=== PATIENT | female | born 1960 | race Caucasian/White ===

== ENCOUNTER → 2017-06-29 | Outpatient (REF) ==
--- NOTE | 2017-06-29 14:59 | REP ---
Left knee five views: There are no comparisons. There is chondrocalcinosis suggestive of CPPD. There is joint space narrowing of the medial compartment compatible with articular cartilage atrophy. There is no joint space narrowing of the lateral compartment patellofemoral compartment. Mineralization is normal. There is no joint effusion. Impression: Chondrocalcinosis suggestive of CPPD. Articular cartilage atrophy in the medial compartment. Signed by Martin Blue MD 06/29/2017 02:51 P
== END ==
LOC: M SMT 14:04
PROVIDERS: ATTEND Internal Medicine
DX: Z02.9 Encounter for administrative examinations, unspecified (principal)

== ENCOUNTER → 2019-02-22 | Outpatient (CLI) | payer OTHER ==
[~2019-02-22] MED LIST: CYCL10TA PO; DOXE10CA PO; FEXO180T58 PO; GABA-1171 PO; HYDR-3713 PO; HYDR-643 PO; LEVO50TA5 PO; LISI10TA4 PO; MIRA0.5T PO; MONT10TA2 PO; PARO10TA3 PO; SIMV20TA2 PO; VENTAER INH; XOLA150S SC
[2019-02-22 11:05] LABS: HEMATOCRIT 44.9 % (36.0-47.0); HEMOGLOBIN 14.9 g/dl (12.0-15.5); MEAN CORPUSCULAR HEMOGLOBIN 29.2 pg (27.0-33.0); MEAN CORPUSCULAR HGB CONC 33.2 g/dl (32.0-36.5); MEAN CORPUSCULAR VOLUME 87.9 fl (80.0-96.0); PLATELET COUNT, AUTOMATED 251 10^3/uL (150-450); RED BLOOD COUNT 5.11 10^6/uL (4.00-5.40); WHITE BLOOD COUNT 6.7 10^3/uL (4.0-10.0)
[2019-02-22 11:17] LABS: INR 0.96; PROTHROMBIN TIME 12.9 SECONDS (12.1-14.4)
[2019-02-22 11:45] LABS: ERYTHROCYTE SEDIMENTATION RATE 18 mm/hr (0-30)
[2019-02-22 11:49] LABS: ALBUMIN 3.5 GM/DL (3.2-5.2); ALT/SGPT 112 U/L (12-78); BILIRUBIN,TOTAL 1.3 MG/DL (0.2-1.0); BLOOD UREA NITROGEN 14 MG/DL (7-18); CALCIUM LEVEL 8.8 MG/DL (8.8-10.2); CARBON DIOXIDE LEVEL 24 MEQ/L (21-32); CHLORIDE LEVEL 104 MEQ/L (98-107); CREATININE FOR GFR 0.71 MG/DL (0.55-1.30); GLOMERULAR FILTRATION RATE > 60.0 (>45); GLUCOSE, FASTING 153 MG/DL (70-100); POTASSIUM SERUM 4.5 MEQ/L (3.5-5.1); SODIUM LEVEL 137 MEQ/L (136-145); TOTAL PROTEIN 7.6 GM/DL (6.4-8.2)
--- NOTE | 2019-02-23 01:47 | REP ---
Clinical: Preoperative assessment. Left knee arthroplasty . Comparison: None . Technique: PA and lateral. Findings: The mediastinum and cardiac silhouette are normal. The lung hobbs are clear and without acute consolidation, effusion, or pneumothorax. The skeletal structures are intact and normal. Impression: 1. No acute cardiopulmonary process. Electronically Signed by Darrius Echols MD 02/23/2019 01:38 A
--- NOTE | 2019-02-23 19:08 | ECGEPIP ---
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
== END ==
LOC: M LAB 09:54
PROVIDERS: ATTEND Orthopaedic Surgery
DX: Z01.810 Encounter for preprocedural cardiovascular examination (principal); M17.12 Unilateral primary osteoarthritis, left knee

== ENCOUNTER → 2019-05-03 | Outpatient (CLI) | payer OTHER ==
--- NOTE | 2019-05-02 15:21 | HPE ---
DATE OF ANTICIPATED ADMISSION: 05/03/2019 .ATTENDING PHYSICIAN: Dr. Robbin Castaneda CHIEF COMPLAINT: Left knee pain and stiffness. HISTORY: This is a pleasant, 58-year-old female patient with progressively worsening left knee pain and stiffness who has failed to improve with conservative management. She has continued pain with weightbearing activities that are affecting her activities of daily living. She has elected for and consented for left total knee arthroplasty by Dr. Castaneda for her continued symptoms. ALLERGIES: PENICILLIN, ERYTHROMYCIN which give her canker sores in her mouth. CURRENT MEDICATIONS: - omeprazole 20 mg 2 capsules by mouth daily - hydroxyzine HCl 10 mg as directed - Ventolin as directed - fexofenadine HCl 180 mg one by mouth daily - paroxetine 10 mg one by mouth daily - levothyroxine 50 mcg one by mouth daily on an empty stomach - pramipexole dihydrochloride 0.5 mg one by mouth daily - Singulair 10 mg one by mouth daily - simvastatin 20 mg one by mouth daily - lisinopril 10 mg one by mouth daily - cyclobenzaprine 10 mg one by mouth three times a day as needed - doxepin 10 mg one by mouth daily - Xolair 150 mg/mL as directed - [place] 5/325 one by mouth every 6 hours as needed PAST MEDICAL HISTORY: 1. Obstructive sleep apnea. 2. Essential hypertension. 3. Mixed hyperlipidemia. 4. Asthma. 5. Hypothyroidism. 6. Chronic idiopathic urticaria. 7. Esophageal reflux. 8. Environmental and seasonal allergies. 9. Restless leg syndrome. 10. Chronic knee pain. SURGICAL HISTORY: 1. Right total knee arthroplasty. 2. Left lower abdominal hernia repair. 3. The patient had recent cardiac catheterization this year. FAMILY HISTORY: Noncontributory. SOCIAL HISTORY: The patient does not smoke. She occasionally drinks alcohol. REVIEW OF SYSTEMS: Denies fever, chills, chest pain, shortness breath, nausea, vomiting, diarrhea. Denies abdominal pain. Denies recent upper respiratory or urinary tract infection symptoms. PHYSICAL EXAMINATION: Vital signs: Height 5, 2-1/2. Weight 286.8 pounds. Temperature 98.5. Blood pressure 140/80. Pulse 115. Respirations 14. Normocephalic, atraumatic. Neck: Supple with no lymphadenopathy or jugular venous distention (JVD). S1 and S2 auscultated with no murmurs, rubs, or gallops. Lungs: Clear to auscultation bilaterally. Abdomen: Soft, nontender. Examination of the left knee reveals no overlying rash. The patient has some healing scabs secondary to her chronic urticaria but nowhere in the area of the incision. She has intact range of motion. The left lower extremity is well perfused. EKG: Noted with sinus rhythm and occasional supraventricular premature complexes. Cannot rule out old inferior myocardial infarction. Chest x-ray: With no acute cardiopulmonary process. LABS: White count 6.7. Red count 5.11. Hemoglobin 14.9. Hematocrit 44.9. ESR 18. BUN 14. Creatinine 0.71. PT 12.9. INR 0.96. Preoperative medical optimization by Genie Aleman noted and reviewed today on the chart. The patient has a cardiac consultation tomorrow and we will await the results of this appointment. IMPRESSION: Symptomatic left knee osteoarthritis. PLAN: Consented for a left total knee arthroplasty by Dr. Castaneda pending cardiac clearance.
[~2019-05-03] VITALS: Ht 160 cm; Wt 129.3 kg
[~2019-05-03] MED LIST changes: +AMLO25TA PO; +ASPI81TA26 PO; +BUPIVACAINE LIPOSOME/PF 1.3% 20ML VIAL (13.3MG/ML)(EXPAREL)(C9290 PER1MG) As Ordered ONE; +CLINDAMYCIN 900 MG in APPROPRIATE DILUENT 1 EA IV ONE; +CLINDAMYCIN INJ 900MG/6ML VIAL As Ordered ONE; +EPINEPHrine INJ 1 MG/ML 1ML AMP As Ordered ONE; +LR 1,000 ML IV ONE; +MIDAZOLAM INJ 2 MG/2 ML VIAL (J2250) As Ordered ONE; +OMEP20CA4 PO; +TRANEXAMIC ACID 100 MG/ML 10ML VIAL As Ordered ONE; +fentaNYL 100 MCG/2 ML INJECTION (J3010) As Ordered ONE
--- NOTE | 2019-05-03 18:43 | IPN ---
DATE: 05/03/2019 She presents today in anticipation of doing a left total knee arthroplasty; however, she has systemic hives that affects her left knee. There are several areas involving the anterior aspect of the left knee, which I am afraid would increase our risk of infection potentially. She just got some sort of injectable medication yesterday that usually clears it up. She says Benadryl usually helps it, but I explained to her that I am not comfortable making an incision through the anterior part of this knee, because it will increase her risk of infection, and we need to make this as safe as possible. She understands this. As of the time of her history and physical, she did not have any hives in the area of the knee. We are going to have to reschedule her.
== END ==
LOC: M SDC 09:30 → M OR 09:35 → UNDOADMIN 09:35 → EDSTATUS 12:05
PROVIDERS: ATTEND Orthopaedic Surgery
DX: M17.12 Unilateral primary osteoarthritis, left knee (principal); Z53.8 Procedure and treatment not carried out for other reasons

== ENCOUNTER 2019-06-06 05:40 | Inpatient (IN) | payer OTHER ==
[~2019-06-06] VITALS: Ht 160 cm; Wt 129.0 kg
[2019-06-06] VITALS (10 sets, daily range): BP systolic 108–130; BP diastolic 46–70
[~2019-06-06 05:40] MED LIST changes: -BUPIVACAINE LIPOSOME/PF 1.3% 20ML VIAL (13.3MG/ML)(EXPAREL)(C9290 PER1MG) As Ordered ONE; -CLINDAMYCIN 900 MG in APPROPRIATE DILUENT 1 EA IV ONE; -CLINDAMYCIN INJ 900MG/6ML VIAL As Ordered ONE; -EPINEPHrine INJ 1 MG/ML 1ML AMP As Ordered ONE; -LR 1,000 ML IV ONE; -MIDAZOLAM INJ 2 MG/2 ML VIAL (J2250) As Ordered ONE; +OMEP1CAP73 PO; -OMEP20CA4 PO; -SIMV20TA2 PO; +SIMV20TA22 PO; -TRANEXAMIC ACID 100 MG/ML 10ML VIAL As Ordered ONE; +UNRESOLVED CLARIFICATION ENTRY XX SCH; -fentaNYL 100 MCG/2 ML INJECTION (J3010) As Ordered ONE
[2019-06-06] MEDS ORDERED: LR 1,000 ML IV ONE (06:00)
[2019-06-06] MEDS ORDERED: LIDOCAINE 1% MDV 20ML VIAL SQ PRN (06:00)
[2019-06-06] MEDS ORDERED: CLINDAMYCIN 900 MG in IV 1 EA IV ONE (06:00)
[2019-06-06] MEDS ORDERED: fentaNYL 100 MCG/2 ML INJECTION (J3010) IV SCH (06:00)
[2019-06-06] MEDS ORDERED: VITA500T PO (06:19)
[2019-06-06] MEDS ORDERED: METF500T13 PO (06:19)
[2019-06-06 06:26] LABS: INR 0.99; PROTHROMBIN TIME 12.8 SECONDS (11.8-14.0)
[2019-06-06] MEDS ORDERED: fentaNYL 100 MCG/2 ML INJECTION (J3010) As Ordered ONE (06:46)
[2019-06-06] MEDS ORDERED: MIDAZOLAM INJ 2 MG/2 ML VIAL (J2250) As Ordered ONE ×2 (06:46→07:35)
[2019-06-06] MEDS ORDERED: CLINDAMYCIN INJ 900MG/6ML VIAL As Ordered ONE (06:53)
[2019-06-06] MEDS ORDERED: EPINEPHrine INJ 1 MG/ML 1ML VIAL As Ordered ONE (06:53)
[2019-06-06] MEDS ORDERED: BUPIVACAINE LIPOSOME/PF 1.3% 20ML VIAL (13.3MG/ML)(EXPAREL)(C9290 PER1MG) As Ordered ONE (06:53)
[2019-06-06] MEDS ORDERED: TRANEXAMIC ACID 100 MG/ML 10ML VIAL As Ordered ONE (06:53)
[2019-06-06] MEDS: MIDAZOLAM INJ 2 MG/2 ML VIAL (J2250) IV SCH ×2 (07:14→07:16)
--- NOTE | 2019-06-06 07:34 | IPN ---
DATE: 06/06/2019 The patient is seen and examined. She wished to go ahead with a left total knee arthroplasty. She understands the nature of this, the risks of bleeding, infection, damage to nerves, vessels, persistent pain, wear loosening, blood clots, medical problems, among others. She understands that her weight plays a role in the increased risks and terms of deep venous thrombosis (DVT), wound healing problems, medical issues, among others. Preoperative clearance was obtained.
[2019-06-06] MEDS ORDERED: BUPIVACAINE/DEXTROSE 0.75% 2 ML AMP As Ordered ONE (07:36)
[2019-06-06] MEDS ORDERED: propofoL 200 MG/20 ML VIAL As Ordered ONE ×2 (07:53→08:25)
[2019-06-06] MEDS ORDERED: PHENYLEPHRINE INJ 10MG/ML VIAL (J2370) As Ordered ONE (08:15)
[2019-06-06] MEDS ORDERED: PHENYLephrine HCL 500 MCG/5 ML (100MCG/ML) SYRINGE (J2370) As Ordered ONE (08:15)
[2019-06-06] MEDS ORDERED: ePHEDrine SULFATE 25 MG/5 ML(5MG/ML) SYRINGE As Ordered ONE (08:15)
[2019-06-06] MEDS ORDERED: KETOROLAC 60 MG/2 ML VIAL (J1885) As Ordered ONE (08:41)
[2019-06-06] MEDS ORDERED: ONDANSETRON 4MG/2ML VIAL (J2405) As Ordered ONE (08:41)
[2019-06-06] MEDS ORDERED: FLEET ENEMA PR PRN (09:30)
[2019-06-06] MEDS ORDERED: ONDANSETRON 4MG/2ML VIAL (J2405) IV PRN ×2 (09:30)
[2019-06-06] MEDS ORDERED: ACETAMINOPHEN TAB 650MG DOSE (2X325MG) PO PRN (09:30)
[2019-06-06] MEDS ORDERED: MORPHINE 4 MG/ML 1ML VIAL/SYRINGE (J2270) IV PRN ×2 (09:30)
[2019-06-06] MEDS ORDERED: fentaNYL 100 MCG/2 ML INJECTION (J3010) IV PRN (09:30)
[2019-06-06] MEDS ORDERED: LR 1,000 ML IV SCH (09:30)
--- NOTE | 2019-06-06 10:08 | REP ---
Left knee two views postoperative study: There is a total knee arthroplasty with the components tightly applied and in satisfactory positions alignment. Skin leif are incidentally noted. Electronically Signed by Martin Blue MD 06/06/2019 09:59 A
[2019-06-06] MEDS: PERCOCET 5MG/325MG TAB PO PRN ×3 (11:24→21:28)
[2019-06-06] MEDS: LR 1,000 ML IV SCH ×2 (11:24→23:53)
[2019-06-06] MEDS ORDERED: IPRATROPIUM 0.5MG/ALBUTEROL 2.5MG INH SOL UD 3ML (DUONEB)(J7620) NEB PRN (14:30)
--- NOTE | 2019-06-06 14:50 | CR ---
DATE OF CONSULTATION: 06/06/2019 REASON FOR CONSULTATION: Management of chronic medical problems. CHIEF COMPLAINT: Left knee pain. REFERRING PHYSICIAN: Dr. Robbin Castaneda. HISTORY OF PRESENT ILLNESS: This is a 58-year-old female with a past medical history significant for asthma, obstructive sleep apnea, hypertension, dyslipidemia, hypothyroidism, chronic idiopathic urticaria, reflux, seasonal allergies, restless leg and chronic knee pain. She presents for elective left knee replacement. The patient has failed on outpatient conservative treatment with physical therapy (PT) and pain medications. She had an uneventful surgery and postoperatively only complains of discomfort at the left knee. She is afebrile. No prior history of heart disease. The patient has no nausea, vomiting, abdominal pain. Denies any chest pain, pressure, tightness, shortness of breath, lightheadedness, or dizziness. No cough. No dysuria, urgency, frequency. No other issues per nursing at the bedside. The patient is requesting for more pain medications postoperatively. PAST MEDICAL HISTORY: 1. Hypertension. 2. Hypothyroidism. 3. Hyperlipidemia. 4. Chronic urticaria. 5. Allergic rhinitis. 6. Seasonal allergies. 7. Essential hypertension. 8. Obstructive sleep apnea. 9. Chronic idiopathic urticaria. 10. Esophageal reflux. 11. Restless leg syndrome. 12. Chronic knee pain. PAST SURGICAL HISTORY: 1. Tubal ligation. 2. Right total knee replacement. 3. Hernia repair. 4. Cardiac catheterization this year. ALLERGIES: ERYTHROMYCIN, PENICILLIN. HOME MEDICATIONS: - Prilosec 20 mg two tablets daily - [place] 5/325 mg as needed every 6 hours - hydroxyzine 10 mg as needed - Xolair 150 mg/mL as directed - Ventolin - doxepin 10 mg daily - fexofenadine 180 mg daily - cyclobenzaprine 10 mg twice a day as needed - paroxetine 10 mg daily - Lisinopril 10 mg daily - simvastatin 20 mg daily - Singulair 10 mg daily FAMILY HISTORY: Mother at age 62 with diabetes. Father at age 70 with Alzheimer's. The patient has no siblings. SOCIAL HISTORY: The patient previously smoked a pack of cigarettes daily for about 20 years, quit many years ago. She still drinks two to three wine or beer daily. 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 She lives in a one-story home with a few steps going into the home, but currently has railings, which were placed after her right knee replacement previously. REVIEW OF SYSTEMS: The patient denies any recent upper respiratory infection. No fever, chills, sputum production, shortness of breath. Denies history of urgency, frequency. No nausea, vomiting, diarrhea. No upper or lower extremity weakness. The patient has chronic joint pains in the knee, left currently. 12-point system otherwise negative aside from positive findings on history of present illness. VITAL SIGNS: Temperature 98.8, pulse 98, respiratory rate 12, blood pressure 130/70, 96% on 2 liters nasal cannula. GENERAL: The patient is awake, alert, oriented times three. Anicteric sclerae. No jaundice. Able to speak in full sentences without conversational dyspnea. NECK: Thick, supple. Full range of motion. No cervical lymphadenopathy or thyromegaly. LUNGS: Clear to auscultation. No wheezing, rales or rhonchi. Air entry is equal bilaterally. HEART: S1, S2. Distant heart sounds. Regular rate and rhythm. ABDOMEN: Obese, soft, nontender, nondistended. Positive bowel sounds times four quadrants. EXTREMITIES: No pitting edema. The patient has left knee bandage. Dorsalis pedis noted bilaterally. SKIN: Warm and dry. Well perfused. [place] in color. The patient was able to wiggle both of her toes. Normal sensation on the right. The patient has pain on the left knee. LABORATORY DATA: White count 6.7, hemoglobin 14, hematocrit 44, platelet count 251. Sodium 137, potassium 4.5, chloride 104, bicarbonate 24, BUN 14, creatinine 0.71, glucose of 153, calcium 8.8, total bilirubin 1.3, AST 72, ALT 112, total protein 7.6, albumin 3.5. INR is 0.99. IMAGING STUDIES: Knee x-ray on 06/06/2019, total knee arthroplasty with components tightly applied and in satisfactory position in the left knee. Skin leif are noted. Chest x-ray from 05/25/2019 showed no acute cardiopulmonary process. ASSESSMENT AND PLAN: 58-year-old status post left knee replacement due to severe osteoarthritis. ACTIVE ISSUES: 1. Postoperative left knee, managed by orthopedic surgery, including DVT prophylaxis, bowel regimen and pain control. Physical therapy (PT) has been consulted. The patient has been encouraged to ambulate with assistance using a walker. The patient is currently on Xarelto 10 mg daily for deep vein thrombosis (DVT) prophylaxis and receiving perioperative clindamycin. Still on lactated Ringer 75 mL an hour, 3 mg of IV morphine every 2 hours as needed for severe pain and Percocet one tablet every 4 hours, Zofran for antiemetic. Bowel regimen with Fleet enema. 2. Morbid obesity. BMI is 50.4. At risk for hypercapnic respiratory failure in light of opioid being given for pain control. Obstructive sleep apnea protocol. Monitor for respiratory distress and altered mental status. 3. Hypertensive heart disease. Currently on amlodipine 2.5 mg daily, which we will resume with holding parameters. 4. Allergic rhinitis. Continue on fexofenadine. 5. Neuropathic pain. Continue on gabapentin 100 mg at night. 6. Hypothyroidism. Continue on levothyroxine 50 mcg daily. 7. History of asthma. Continue on nebulizers as needed. Montelukast 10 mg daily. 8. Reflux. Continue on omeprazole. 9. Depression. Continue on paroxetine 10 mg daily. MTDD
[2019-06-06] MEDS: CLINDAMYCIN 900 MG in IV 1 EA IV SCH ×2 (15:52→23:53)
[2019-06-06] MEDS: GABAPENTIN 100 MG CAP PO SCH (20:44)
[2019-06-06] MEDS: PRAMIPEXOLE 0.25 MG TAB PO SCH (20:44)
[2019-06-06] MEDS: FEXOFENADINE 60 MG TAB PO SCH (20:44)
[2019-06-06] MEDS: MONTELUKAST 10 MG TAB PO SCH (20:44)
[2019-06-06] MEDS: PARoxetine 10MG TABLET PO SCH (20:44)
[2019-06-07 02:00] VITALS: BP 120/65
[2019-06-07 06:00] VITALS: BP 121/65
[2019-06-07] MEDS: LEVOTHYROXINE 50MCG TABLET (0.05MG) PO SCH (06:10)
[2019-06-07] MEDS: PERCOCET 5MG/325MG TAB PO PRN ×4 (06:10→22:27)
[2019-06-07] MEDS ORDERED: PERC5TAB12 PO (06:36)
[2019-06-07] MEDS ORDERED: XARE10TA PO (06:36)
[2019-06-07 06:49] LABS: HEMATOCRIT 37.5 % (36.0-47.0); HEMOGLOBIN 12.3 g/dl (12.0-15.5); MEAN CORPUSCULAR HEMOGLOBIN 30.6 pg (27.0-33.0); MEAN CORPUSCULAR HGB CONC 32.8 g/dl (32.0-36.5); MEAN CORPUSCULAR VOLUME 93.3 fl (80.0-96.0); PLATELET COUNT, AUTOMATED 261 10^3/uL (150-450); RED BLOOD COUNT 4.02 10^6/uL (4.00-5.40); WHITE BLOOD COUNT 8.8 10^3/uL (4.0-10.0)
[2019-06-07 07:15] LABS: HEMOGLOBIN A1c 9.1 %
[2019-06-07 07:26] LABS: BLOOD UREA NITROGEN 16 MG/DL (7-18); CARBON DIOXIDE LEVEL 28 MEQ/L (21-32); CHLORIDE LEVEL 104 MEQ/L (98-107); CHOLESTEROL LEVEL 239 MG/DL (<200); CHOLESTEROL RISK RATIO 5.085 (<5); CREATININE FOR GFR 0.72 MG/DL (0.55-1.30); GLOMERULAR FILTRATION RATE > 60.0 (>45); GLUCOSE, FASTING 196 MG/DL (70-100); HDL CHOLESTEROL 47 MG/DL (>40); LDL CHOLESTEROL 159 MG/DL (<100); NON-HDL-C 192 MG/DL; POTASSIUM SERUM 3.9 MEQ/L (3.5-5.1); SODIUM LEVEL 138 MEQ/L (136-145); TRIGLYCERIDES LEVEL 164 MG/DL (<150)
[2019-06-07] MEDS ORDERED: NON-FORMULARY 1 EA EA PO SCH (09:00)
[2019-06-07] MEDS: MIRALAX *UNIT DOSE* 17GM PACKET PO SCH (09:00)
[2019-06-07] MEDS: MOM 30ML SUSPENSION UDC PO SCH (09:00)
[2019-06-07] MEDS: FEXOFENADINE 60 MG TAB PO SCH ×2 (09:01→21:23)
[2019-06-07] MEDS: CYCLOBENZAPRINE 10 MG TAB PO PRN ×2 (09:01→17:14)
[2019-06-07] MEDS: OMEPRAZOLE 20 MG CAP PO SCH (09:01)
[2019-06-07] MEDS: PRAMIPEXOLE 0.25 MG TAB PO SCH ×2 (09:01→21:22)
[2019-06-07] MEDS: SENOKOT S TAB PO SCH ×2 (09:02→21:23)
[2019-06-07] MEDS: DOCUSATE SODIUM 100 MG CAP PO SCH ×2 (09:26→21:23)
[2019-06-07] MEDS: MORPHINE 15 MG SA TAB PO SCH ×2 (09:26→21:22)
[2019-06-07] MEDS ORDERED: GLUCOSE 4 GM CHEW TABLET PO PRN (09:30)
[2019-06-07] MEDS ORDERED: GLUCAGON FOR INJ 1 MG VIAL (J1610) SC PRN (09:30)
[2019-06-07] MEDS ORDERED: DEXTROSE 50% 50 ML SYRINGE IV PRN (09:30)
[2019-06-07] MEDS ORDERED: metFORMIN (GLUCOPHAGE) 500 MG TAB PO ONE (09:30)
--- NOTE | 2019-06-07 11:17 | RO ---
DATE OF PROCEDURE: 06/06/2019 PREOPERATIVE DIAGNOSIS: Left knee osteoarthritis. PREOPERATIVE DIAGNOSIS: Left knee osteoarthritis. PROCEDURE: Left total knee arthroplasty using an Attune rotating platform, size 5 narrow femur, size 4 tibial tray, 7 polyethylene, 32 patellar button. SURGEON: Robbin Castaneda MD [employer]IGH [employer]CHOOL MATHEMAT[employer] TEACHER: LIZETH Corbin ANESTHESIA: Spinal. ESTIMATED BLOOD LOSS (EBL): Less than 50. COMPLICATIONS: None. INDICATIONS: This is a 58-year-old woman, who has had gradually worsening knee pain. She has been refractory to conservative management and wished to go ahead with surgical treatment. She understood the nature and the risks associated with this. DESCRIPTION OF PROCEDURE: The patient was taken to the operating room and placed in supine position after spinal anesthesia was induced. The left lower extremity was prepped and draped in the usual sterile fashion. A tourniquet had been placed and it was inflated at this point. A time-out was performed. I created longitudinal incision over after the prep and drape was performed. I then did a medial parapatellar arthrotomy per routine. Everted the patella. I did have do somewhat of a lateral release in order to maykel the patella. I flexed the knee up. Used a canal initiating reamer followed by the intramedullary guide set at 9 mm cut in 5 degrees of valgus. This was pinned in place by the therapeutic recreation assistant. The distal femoral cut was made protecting soft tissues. I then sized the femur to be a 5. The drill holes were placed in the end of the femur and the size 5 cutting block was secured and the remaining cuts were made. The excess bone was removed. I then prepared the tibia, protected the posterior cruciate ligament (PCL) and prepared the tibial alignment guide in the appropriate amount of posterior slope and valgus. This was pinned in place at about 4 mm off the low side. Excess bone was removed. A custom van converter was used. Soft tissue and osteophytes were removed from either side of the knee. I then used a trial spacer block and a size 7 seemed to be the most appropriate in flexion/extension. I then performed the sulcus cut using the guide. The tibial tray was placed. Size 4 fit nicely. This was pinned in place, drilled, broached. The trial components were then placed and very pleased with stability of the size 7 and in the alignment of the prosthesis. It was noted that she had due to her morbid obesity had significant impingement of her soft tissues posteriorly behind the knee even at 90 degrees of flexion, so I do not anticipate her getting a lot of flexion out of this knee. The patella was freehand cut removing about 7 mm of bone, sized to be a 32. Drill holes were placed at the end of the femur and the patella tracked very nicely at this point after having done the lateral release. The trial components were removed. I placed the Exparel in the deep tissues. The wound was irrigated and bony surfaces dried as the therapeutic recreation assistant prepared the bone cement. The cement was then placed on the tibial side. Cemented the tray and placed the polyethylene cement on the femur. Removed all excess bone cement and placed the patellar button, cemented this in place. Removed all excess bone cement. Brought the knee out in extension. Irrigated copiously. Placed the tranexamic acid (TXA) in the deep wound. Final deep irrigation was performed. I repaired the deep layer with #1 Vicryl suture in running Stratafix obtaining a watertight closure. We were able to remove the patellar clamp once the cement hardened. I then irrigated, closed subcu with #2-0 Vicryl and the skin with leif. Sterile dressing was applied. Tourniquet had been deflated once the cement hardened. Once sterile dressing was applied, she was taken to recovery room in stable condition. There were no known complications. The plan will be routine postop. The therapeutic recreation assistant was instrumental in holding retractors and assisting in making the distal femoral cut under my direct supervision and assisting in mixing bone cement and in wound closure. This is coded as an unusually difficult procedure to the patient's excessive body mass index (BMI) with her BMI close to 48 or 49, which added significant difficulty to the case in terms of the depth of the wound, in terms performing a lateral release to get the knee flexed back, and in terms of testing the stability and alignment with her size of her leg. This added to the difficulty and time of the case.
[2019-06-07] MEDS: HumaLOG INSULIN (NovoLOG) PER UNIT SC SCH ×2 (12:11→17:15)
--- NOTE | 2019-06-07 14:15 | IPNPDOC ---
Date Seen The patient was seen on 06/07/19. Progress Note SUBJECTIVE: c/o 8/10 pain in the left knee. requesting more pain meds. "It was like this when I had my right knee done. It feels the worst after the first day." worse when she moves, and has not gotten out of bed yet today. denies cough, sob, fever, chills, dysuria. used her cpap overnight OBJECTIVE: VITAL SIGNS: pls see below GENERAL: The patient is awake, alert, oriented times three. Anicteric sclerae. No jaundice. Able to speak in full sentences without conversational dyspnea. NECK: Thick, supple. Full range of motion. No cervical lymphadenopathy or thyromegaly. moist mucus membranes LUNGS: No adventitious breath sounds Clear to auscultation. No wheezing, rales or rhonchi. Air entry is equal bilaterally. HEART: S1, S2. Distant heart sounds. Regular rate and rhythm. ABDOMEN: Obese, soft, nontender, nondistended. Positive bowel sounds times four quadrants. EXTREMITIES: No pitting edema. The patient has left knee bandage. Dorsalis pedis noted bilaterally. SKIN: Warm and dry. Well perfused. [place] in color. The patient was able to wiggle both of her toes. Normal sensation on the right. left knee bandage LABORATORY DATA, IMAGING STUDIES: REVIEWED, PLS SEE BELOW Chest x-ray from 05/25/2019 showed no acute cardiopulmonary process. ASSESSMENT AND PLAN: 58-year-old status post left knee replacement due to severe osteoarthritis. ACTIVE ISSUES: Postoperative left knee, managed by orthopedic surgery, including DVT prophylaxis, bowel regimen and pain control. Physical therapy (PT) has been consulted. The patient has been encouraged to ambulate with assistance using a walker. The patient is currently on Xarelto 10 mg daily for deep vein thrombosis (DVT) prophylaxis and receiving perioperative clindamycin. 3 mg of IV morphine every 2 hours as needed for severe pain and Percocet one tablet every 4 hours, Zofran for antiemetic. Bowel regimen with Fleet enema. Morbid obesity. BMI is 50.4. At risk for hypercapnic respiratory failure in light of opioid being given for pain control. Obstructive sleep apnea on cpap qhs Hypertensive heart disease. on amlodipine 2.5 mg daily Allergic rhinitis. Continue on fexofenadine. Neuropathic pain. Continue on gabapentin 100 mg at night. Hypothyroidism. Continue on levothyroxine 50 mcg daily. History of asthma. Continue on nebulizers as needed. Montelukast 10 mg daily. Reflux. Continue on omeprazole. Depression. Continue on paroxetine 10 mg daily. VS, I&O, 24H, Fishbone Vital Signs/I&O Vital Signs Date Time Temp Pulse Resp B/P (MAP) Pulse Ox O2 Delivery O2 Flow Rate FiO2 06/07/19 12:19 18 06/07/19 09:02 83 121/65 06/07/19 06:00 97.6 93 06/06/19 19:45 2.0 I&O- Last 24 Hours up to 6 AM 06/07/19 06:00 Intake Total 3145 ml Output Total 2525 ml Balance 620 ml Laboratory Data 24H LABS Laboratory Tests 2 06/07/19 06:21: Nucleated Red Blood Cells % (auto) 0.0, Anion Gap 6L, Glomerular Filtration Rate > 60.0, Estimated Mean Plasma Glucose 214H, Hemoglobin A1c 9.1, Calcium Level 9.0, Triglycerides Level 164H, LDL Cholesterol 159H, Total Cholesterol 239H, Non-HDL Cholesterol (LDL + VLDL) 192, Total HDL Cholesterol 47, Cholesterol/HDL Ratio 5.085H, Thyroid Stimulating Hormone (TSH) 0.590 06/07/19 12:01: Bedside Glucose (Misc Panel) 190H CBC/BMP Laboratory Tests 06/07/19 06:21 Red Blood Count 4.02, Mean Corpuscular Volume 93.3, Mean Corpuscular Hemoglobin 30.6, Mean Corpuscular Hemoglobin Concent 32.8, Red Cell Distribution Width 12.2 KALPESH MERCEDES MD Jun 07, 2019 14:15
[2019-06-07 14:45] VITALS: BP 122/65
[2019-06-07] MEDS: metFORMIN (GLUCOPHAGE) 500 MG TAB PO SCH (17:14)
[2019-06-07] MEDS ORDERED: RIVAROXABAN 10 MG TAB (XARELTO) PO SCH (18:00)
[2019-06-07] MEDS ORDERED: HumaLOG INSULIN (NovoLOG) PER UNIT SC SCH (21:00)
[2019-06-07] MEDS: GABAPENTIN 100 MG CAP PO SCH (21:23)
[2019-06-07] MEDS: MONTELUKAST 10 MG TAB PO SCH (21:23)
[2019-06-07] MEDS: PARoxetine 10MG TABLET PO SCH (21:23)
[2019-06-07 22:00] VITALS: BP 170/86
[2019-06-08] MEDS: LEVOTHYROXINE 50MCG TABLET (0.05MG) PO SCH (05:48)
[2019-06-08] MEDS: PERCOCET 5MG/325MG TAB PO PRN ×2 (05:49→10:47)
[2019-06-08 06:00] VITALS: BP 156/89
[2019-06-08] MEDS ORDERED: XARE10TA PO (07:06)
[2019-06-08] MEDS: DOCUSATE SODIUM 100 MG CAP PO SCH (08:33)
[2019-06-08] MEDS: OMEPRAZOLE 20 MG CAP PO SCH (08:34)
[2019-06-08] MEDS: PRAMIPEXOLE 0.25 MG TAB PO SCH (08:34)
[2019-06-08] MEDS: FEXOFENADINE 60 MG TAB PO SCH (08:34)
[2019-06-08 08:35] VITALS: BP 156/89
[2019-06-08] MEDS: MORPHINE 15 MG SA TAB PO SCH (08:35)
[2019-06-08] MEDS: SENOKOT S TAB PO SCH (08:36)
[2019-06-08] MEDS: MOM 30ML SUSPENSION UDC PO SCH (08:36)
[2019-06-08] MEDS: metFORMIN (GLUCOPHAGE) 500 MG TAB PO SCH (08:36)
[2019-06-08] MEDS: MIRALAX *UNIT DOSE* 17GM PACKET PO SCH (08:36)
[2019-06-08] MEDS: CYCLOBENZAPRINE 10 MG TAB PO PRN (08:36)
[2019-06-08] MEDS: HumaLOG INSULIN (NovoLOG) PER UNIT SC SCH ×2 (08:37→11:49)
--- NOTE | 2019-06-08 13:38 | IPNPDOC ---
Date Seen The patient was seen on 06/08/19. Progress Note SUBJECTIVE: pt did not ambulate yesterday, but had a long discussion with physical therapy who is currently present at the bedside. pain is tolerable 3/10 while supine, but just got pain med. Pt otherwise denies cp, sob, n/v/abd/d/f/c. medically stable for discharge once clears PT. VITAL SIGNS: pls see below GENERAL: supine in bed. The patient is awake, alert, oriented times three. Anicteric sclerae. No jaundice. Able to speak in full sentences without conversational dyspnea. NECK: Thick, supple. Full range of motion. No cervical lymphadenopathy or thyromegaly. moist mucus membranes LUNGS: No adventitious breath sounds Clear to auscultation. No wheezing, rales or rhonchi. Air entry is equal bilaterally. HEART: S1, S2. Distant heart sounds. Regular rate and rhythm. ABDOMEN: Obese, soft, nontender, nondistended. Positive bowel sounds times four quadrants. EXTREMITIES: No pitting edema. The patient has left knee bandage. Dorsalis pedis noted bilaterally. SKIN: Warm and dry. Well perfused. [place] in color. The patient was able to wiggle both of her toes. Normal sensation on the right. left knee bandage LABORATORY DATA, IMAGING STUDIES: REVIEWED, PLS SEE BELOW Chest x-ray from 05/25/2019 showed no acute cardiopulmonary process. ASSESSMENT AND PLAN: 58-year-old status post left knee replacement due to severe osteoarthritis. ACTIVE ISSUES: Postoperative left knee, managed by orthopedic surgery, including DVT prophylaxis, bowel regimen and pain control. Physical therapy (PT) has been consulted. The patient has been encouraged to ambulate with assistance using a walker. The patient is currently on Xarelto 10 mg daily for deep vein thrombosis (DVT) prophylaxis and receiving perioperative clindamycin. 3 mg of IV morphine every 2 hours as needed for severe pain and Percocet one tablet every 4 hours, Zofran for antiemetic. Bowel regimen with Fleet enema. Pt to clear pt for discharge home Morbid obesity. BMI is 50.4. At risk for hypercapnic respiratory failure in light of opioid being given for pain control. Obstructive sleep apnea on cpap qhs Hypertensive heart disease. on amlodipine 2.5 mg daily Allergic rhinitis. Continue on fexofenadine. Neuropathic pain. Continue on gabapentin 100 mg at night. Hypothyroidism. Continue on levothyroxine 50 mcg daily. History of asthma. Continue on nebulizers as needed. Montelukast 10 mg daily. Reflux. Continue on omeprazole. Depression. Continue on paroxetine 10 mg daily. disposition: medically stable for hospital discharge. VS, I&O, 24H, Fishbone Vital Signs/I&O Vital Signs Date Time Temp Pulse Resp B/P (MAP) Pulse Ox O2 Delivery O2 Flow Rate FiO2 06/08/19 11:17 18 06/08/19 08:35 94 156/89 06/08/19 06:00 97.9 95 06/06/19 19:45 2.0 I&O- Last 24 Hours up to 6 AM 06/08/19 06:00 Intake Total 480 ml Output Total 1100 ml Balance -620 ml Laboratory Data 24H LABS Laboratory Tests 2 06/07/19 17:01: Bedside Glucose (Misc Panel) 159H 06/07/19 21:19: Bedside Glucose (Misc Panel) 186H 06/08/19 05:52: Bedside Glucose (Misc Panel) 170H 06/08/19 11:34: Bedside Glucose (Misc Panel) 165H KALPESH MERCEDES MD Jun 08, 2019 13:38
--- NOTE | 2019-06-13 18:14 | DSES ---
DATE OF ADMISSION: 06/06/2019 DATE OF DISCHARGE: 06/08/2019 ATTENDING PHYSICIAN: Robbin Castaneda MD ADMISSION DIAGNOSIS: 1. Osteoarthritis left knee OTHER DIAGNOSES: 1. Hypertension. 2. Hypothyroidism. 3. Hyperlipidemia. 4. Chronic urticaria. 5. Allergic rhinitis. 6. Seasonal allergies. 7. Essential hypertension. 8. Sleep apnea. 9. Gastric reflux disease. 10. Restless leg syndrome. 11. Obesity. DISCHARGE DIAGNOSIS: 1. Osteoarthritis left knee, status post left total knee arthroplasty. OPERATION PERFORMED: Left total knee arthroplasty. HISTORY: This is a pleasant 58-year-old female patient with progressively worsening left knee pain and stiffness. She failed to improve with conservative management. She was admitted for elective knee replacement on the left side. HOSPITAL COURSE: The patient was admitted on the day of surgery, underwent left total knee arthroplasty which was uneventful. She did well in the postoperative period, though her discharge course did last 2 days due to her numerous medical conditions and obesity. She did struggle with requirements for her physical therapy. Ultimately, her pain was controlled. She was able to complete the requirements of physical therapy. She was discharged home. On day of discharge, she was doing well, weightbearing as tolerated on her left lower extremity. Should move her left knee to prevent stiffness. She will use CALI stockings for 30 days postoperatively, as well as Xarelto per the protocol for deep vein thrombosis (DVT) prophylaxis. She will resume her preoperative medications and diet. She was given instructions to include but not limited to wound monitoring, activity limitations, she will use oral pain medications for pain control. She will follow up in our office in 10-14 days for surgical followup. Please refer to the medical record for further details.
== END 2019-06-08 11:55 | disposition home health service (06) | DRG 302 ==
LOC: M OR 05:40 → M MS5PR 10:15
PROVIDERS: ADMIT Orthopaedic Surgery; ATTEND Orthopaedic Surgery
PROC: 0SRD0J9 Replacement of Left Knee Joint with Synthetic Substitute, Cemented, Open Approach (ICD-10-PCS; principal; 2019-06-06 07:30)
DX: M17.12 Unilateral primary osteoarthritis, left knee (principal); Z68.43 Body mass index [BMI] 50.0-59.9, adult; I11.9 Hypertensive heart disease without heart failure; E66.01 Morbid (severe) obesity due to excess calories; E03.9 Hypothyroidism, unspecified; E78.5 Hyperlipidemia, unspecified; G47.33 Obstructive sleep apnea (adult) (pediatric); K21.9 Gastro-esophageal reflux disease without esophagitis; G25.81 Restless legs syndrome; L50.1 Idiopathic urticaria; Z96.651 Presence of right artificial knee joint; Z88.0 Allergy status to penicillin; Z88.1 Allergy status to other antibiotic agents; Z79.899 Other long term (current) drug therapy; Z87.891 Personal history of nicotine dependence; J45.909 Unspecified asthma, uncomplicated; F32.9 Major depressive disorder, single episode, unspecified

== ENCOUNTER → 2019-09-15 | Outpatient (CLI) | payer OTHER ==
[~2019-09-15] MED LIST changes: +METF500T13 PO; +OMEP-172 PO; -OMEP1CAP73 PO; +PERC5TAB12 PO; -UNRESOLVED CLARIFICATION ENTRY XX SCH; +VITA500T PO; +XARE10TA PO
--- NOTE | 2019-09-15 13:53 | REP ---
TRIPLE PHASE BONE SCAN KNEES: Following the intravenous administration of 22 millicuries technetium 99m MDP, patient's knees are imaged in the flow phase, immediate blood pool and 3-hour delayed phases of imaging in multiple projections. There is mild diffuse increased blood flow and blood pooling in the region of the left knee. Photopenic knee prosthesis is seen bilaterally. Diffuse increased uptake is seen along the margins of the left knee prosthesis in the distal femur and proximal tibia compatible with recent surgical placement in May of 2019. On the right, there is no abnormal blood flow or blood pooling. There is some very mild delayed osseous uptake diffusely along the margins of the right knee prosthesis in the distal femur and proximal tibia, not felt to be significantly abnormal post remote arthroplasty. Electronically Signed by Martin Maldonado MD 09/15/2019 03:54 P
== END ==
LOC: M RAD 09:52
PROVIDERS: ATTEND Physician Assistant Surgical
DX: M25.561 Pain in right knee (principal); Z96.653 Presence of artificial knee joint, bilateral
CPT/HCPCS: 78315; A9503